=== PATIENT | male | born 1945 | race Caucasian/White ===

== ENCOUNTER 2016-12-06 17:32 | Emergency (ER) | payer MEDICARE, OTHER ==
[~2016-12-06] VITALS: Ht 172.7 cm; Wt 83.2 kg
[~2016-12-06 17:32] MED LIST: ASPI-973 PO; ATEN50TA PO; CHOL10008 PO; CITA10TA9 PO; GABA-502 PO; GABA600T2 PO; SIMV10TA4 PO; TAMS0.4C98 PO; TEST200V20 IM
[2016-12-06 17:34] VITALS: BP 143/77; PULSE 48; RESP 20; O2SAT 98
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
[2016-12-06] MEDS ORDERED: _HYDROcodone/APAP 5-325 mg Tablet PO PRN (19:10)
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
[2016-12-06 19:52] VITALS: BP 140/69; PULSE 49; RESP 17; O2SAT 98
== END 2016-12-06 19:52 | disposition home or self-care (01) ==
LOC: SED 17:32
DX: S39.012A Strain of muscle, fascia and tendon of lower back, initial encounter (principal); V44.5XXA Car driver injured in collision with heavy transport vehicle or bus in traffic accident, initial encounter; Y93.89 Activity, other specified; Y92.410 Unspecified street and highway as the place of occurrence of the external cause; Y99.8 Other external cause status; I10 Essential (primary) hypertension; E78.5 Hyperlipidemia, unspecified; F17.200 Nicotine dependence, unspecified, uncomplicated; Z79.82 Long term (current) use of aspirin; Z79.899 Other long term (current) drug therapy; Z88.8 Allergy status to other drugs, medicaments and biological substances

== ENCOUNTER 2017-01-15 17:04 | Emergency (ER) | payer MEDICARE, OTHER ==
[~2017-01-15] VITALS: Ht 172.7 cm; Wt 84.5 kg
[2017-01-15 17:10] VITALS: BP 152/78; PULSE 47; RESP 16; O2SAT 97
--- NOTE | 2017-01-15 18:27 | ED.REPORT ---
HPI-Chest Pain 40 and Over Date of Service Jan 15, 2017 ED Provider: Venkat Cruz DO A 71 year old male with a history of chronic back pain, degenerative disc disease, hypertension, hyperlipidemia and aortic aneurysm presents to the ED complaining of left anterior and lateral rib pain. The pt fall several days ago onto his left side and has been experiencing pain in this area since. He believes that the pain is directly related to his fall. The pt also feels like he needs to cough of sputum but is unable to due to the pain. He denies hematemesis, numbness, weakness, loss of consciousness or blood in his stool. Nursing Notes Stated Complaint: LEFT RIBS SORE Chief Complaint: Chest Pain-Non Cardiac Nature Nursing Notes Reviewed: Yes Allergies: Coded Allergies: terazosin (Verified Allergy, Unknown, PT "DIDN'T LIKE IT", 01/15/17) Scheduled Amoxicillin/Clav K 875-125 mg (Augmentin 875-125 mg) 1 Each Tablet 1 TABLET PO BID Aspirin (Aspirin) 81 Mg Tablet 81 MG PO DAILY Atenolol (Atenolol) 50 Mg Tablet 50 MG PO DAILY Azithromycin (Zithromax (Z-Alvin)) 250 Mg Tablet 250 MG PO DIRECTED Take two tablets by mouth on day 1, then take one tablet daily on days 2 through 5. Cholecalciferol (Vitamin D3) (Vitamin D3) 1,000 Unit Tab.chew 1,000 UNIT PO DAILY Citalopram (Citalopram) 10 Mg Tablet 15 MG PO DAILY Gabapentin (Gabapentin) 600 Mg Tablet 600 MG PO QAM Gabapentin (Gabapentin) 300 Mg Capsule 900 MG PO QPM Simvastatin (Simvastatin) 10 Mg Tablet 10 MG PO HS Tamsulosin (Flomax) 0.4 Mg Capsule 0.8 MG PO DAILY Testosterone Cypionate (Testosterone Cypionate) 200 Mg/1 Ml Vial 200 MG IM Q7DAYS General Time Seen by MD: 18:24 Chief Complaint Other (Rib pain) Hx Obtained From: Patient Arrived By: Walk-in Sudden in Onset?: No Onset Occurred: 5 days ago Symptom Duration: Since onset Recent Healthcare: No recent hospitalization, Recent doctor visit Similar Sx Previous: No Past Medical History Past Medical History Cervical radiculopathy Chronic back pain AAA Ventricular tachycardia Degenerative disc disease Reports: Hyperlipidemia, Hypertension Past Surgical History C3-4 anterior cervical discectomy and fusion right middle finger amputation right wrist surgery Back surgery Smoking History Current Every Day Smoker Social History Alcohol Use: "Social" Other Social History: Local resident Ambulatory Status Wheelchair Review of Systems Respiratory: Reports: Prod cough, clear ("feels like he needs to") Cardiovascular: Reports: Chest pain (left ribs) GI: Denies: Abdominal pain, Hematemesis, Hematochezia Skin: Denies Rash Neurologic: Denies: Change LOC, Numbness, Weakness Complete sys rev & neg: except as marked. Physical Exam Initial Vital Signs Vital Signs (First) Date Time Temp Pulse Resp B/P Pulse Ox O2 Delivery O2 Flow Rate FiO2 01/15/17 17:10 36.8 47 16 152/78 97 Room Air Initial VS: Reviewed General/Constitutional: Awake, Alert Respiratory / Chest: Breath sounds NL, Breath sounds = bilat, No respiratory distress left chest wall tenderness to palpation Cardiovascular: Heart rate NL, Regular rhythm, Heart sounds NL Abdomen: Atraumatic, Soft, Non-tender Neck: Atraumatic, Supple, Full range of motion Back: Atraumatic, Full range of motion Lower Extremity / Pelvis / MS: Atraumatic, Full range of motion Skin: Atraumatic, Color NL, No rash, Warm, Dry Neurologic: Oriented X3, Speech NL, No motor deficits, No sensory deficits Psychiatric: Affect NL, Mood NL Head / Eyes: Atraumatic, Normocephalic, PERRL, EOMI ENT: Atraumatic, Airway patent, Mucous membranes moist Upper Extremity / MS: Atraumatic, Full range of motion Interpretation & Diagnostics Interpretation & Diagnostics: X-Ray Left Ribs: IMPRESSION: No fracture identified. Question of infiltrate versus atelectasis at the left costophrenic sulcus. Dictated by: Rk Bran M.D. on 01/15/2017 at 18:26 Approved by: Rk Bran M.D. on 01/15/2017 at 18:27 Re-Eval/Medical Decision Med Decision/Clinical Course Clinical history is suggestive of a chest wall contusion. X-rays reassuring further pathology such as hematoma pneumothorax, rib fracture. No abdominal pain, no signs or symptoms of acute coronary syndrome or aortic dissection. There is some suggestion of early pneumonia versus atelectasis on x-ray, patient admits to coughing more will treat as a possible pneumonia. Stable for discharge. Declines pain medication. Return and follow-up precautions given. Source of Hx: Old records Time of Eval: 18:24 Patient Status: Condition improved Re-Evaluation/Progress Note: Pt informed of the diagnosis and plan for discharge during the initial interview. The pt understands and agrees with the plan. All questions are addressed at this time. Counseled Regarding: Diagnosis, Lab results, Need for follow-up, When/why to return to ED Discharge & Departure Primary Impression: Chest wall contusion Encounter type: initial encounter Laterality: left Qualified Code: S20.212A - Contusion of left front wall of thorax, initial encounter Disposition: Home Discharge Condition All VS Reviewed: Yes Condition: Stable Additional Instructions: Continue your other medications. Take Augmentin and azithromycin to treat a possible early pneumonia. Follow-up with your primary care doctor. Return to the ER as needed for new or worsening symptoms. Referrals: Lee Ovalles MD (PCP) Marisibe Attestation Portions of this note were transcribed by Candace Steve. I, Dr. Cruz personally performed the history, physical exam and medical decision-making; I reviewed and confirmed the accuracy of the information in the transcribed note. Signed by: Allison Mueller, 01/15/2017 and 1843. copies to: Lee Ovalles MD, Timothy S DO Jan 15, 2017 18:27 CANDACE STEVE Jan 15, 2017 18:37
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
[2017-01-15] MEDS ORDERED: AMOX-366 PO (18:37)
[2017-01-15] MEDS ORDERED: AZIT250T4 PO (18:37)
[2017-01-15 18:58] VITALS: BP 140/79; PULSE 47; O2SAT 97
== END 2017-01-15 18:59 | disposition home or self-care (01) ==
LOC: SED 17:04
DX: S20.212A Contusion of left front wall of thorax, initial encounter (principal); W19.XXXA Unspecified fall, initial encounter; Y93.9 Activity, unspecified; Y92.9 Unspecified place or not applicable; Y99.9 Unspecified external cause status; E78.5 Hyperlipidemia, unspecified; I10 Essential (primary) hypertension; F17.200 Nicotine dependence, unspecified, uncomplicated; Z79.82 Long term (current) use of aspirin; Z79.899 Other long term (current) drug therapy; Z88.8 Allergy status to other drugs, medicaments and biological substances